=== PATIENT | female | born 1975 | race Caucasian/White ===

== ENCOUNTER → 2019-05-29 10:44 | Outpatient (CLI) | payer OTHER, SELFPAY ==
--- NOTE | ~2019-05-29 | MM_ITS ---
EXAMINATION: MM screening [facility] w negrito HISTORY: Screening mammogram TECHNIQUE: Bilateral rotated lateral cc views. .......Craniocaudal and mediolateral oblique 3-D tomos ynthesis images were obtained and synthetic 2-D images were generated. CAD analysis was submitted and interpreted. COMPARISON: 05/23/2018, 05/07/2017, 04/24/2016 bilateral digital screening mammogram examinations BREAST PARENCHYMAL COMPOSITION: The breasts are heterogeneously dense, which may obscure small masses . FINDINGS: There is no evidence of suspicious mass, calcification, or architectural distortion to sugg est malignancy in either breast. There has been no suspicious interval change. IMPRESSION: 1. No mammographic evidence of malignancy. 2. Recommend routine screening mammography in one year. BI-RADS Category 1: Negative Reviewed, dictated and finalized at location B. OSAL COORDINATOR
== END ==
PROVIDERS: PCP Family Medicine; Visit Provider Obstetrics & Gynecology
DX: Z12.31 Encounter for screening mammogram for malignant neoplasm of breast (principal)
CPT/HCPCS: 77063; 77067

== ENCOUNTER 2019-11-18 07:34 | Outpatient (NON) | payer OTHER, SELFPAY ==
[2019-11-20 01:38] LABS: SARS-CoV-2 RNA PCR Negative
== END 2019-11-18 07:35 ==
PROVIDERS: Physician Assistant; PCP Family Medicine; Visit Provider Family Medicine
DX: Z20.828 Contact with and (suspected) exposure to other viral communicable diseases (principal); R68.89 Other general symptoms and signs
CPT/HCPCS: 87635; C9803; U0003

== ENCOUNTER → 2020-07-19 10:26 | Outpatient (CLI) | payer OTHER, SELFPAY ==
--- NOTE | ~2020-07-19 | MM_ITS ---
EXAMINATION: MM screening [facility] BI w negrito HISTORY: Screening mammogram TECHNIQUE: Craniocaudal and mediolateral oblique 3-D tomosynthesis images were obtained and synthetic 2-D images were generated. CAD analysis was submitted and interpreted. COMPARISON: 05/29/2019, 05/15/2018, 05/07/2017 BREAST PARENCHYMAL COMPOSITION: The breasts are heterogeneously dense, which may obscure small masses . FINDINGS: There is no evidence of suspicious mass, calcification, or architectural distortion to sugg est malignancy in either breast. There has been no suspicious interval change. IMPRESSION: 1. No mammographic evidence of malignancy. 2. Recommend routine screening mammography in one year. BI-RADS Category 1: Negative Reviewed, dictated and finalized at location A.
== END ==
PROVIDERS: PCP Family Medicine; Visit Provider Obstetrics & Gynecology
DX: Z12.31 Encounter for screening mammogram for malignant neoplasm of breast (principal)
CPT/HCPCS: 77063; 77067

== ENCOUNTER → 2021-08-25 10:27 | Outpatient (CLI) | payer OTHER, SELFPAY ==
--- NOTE | ~2021-08-25 | MM_ITS ---
EXAMINATION: MM screening [facility] w negrito HISTORY: Screening mammogram TECHNIQUE: Craniocaudal and mediolateral oblique 3-D tomosynthesis images were obtained and synthetic 2-D images were generated. Bilateral rotated lateral CC views. CAD analysis was submitted and interp reted. COMPARISON: 07/19/2020, 06/03/2019, 05/23/2018 bilateral screening mammogram examinations BREAST PARENCHYMAL COMPOSITION: The breasts are heterogeneously dense, which may obscure small masses . FINDINGS: There is no evidence of suspicious mass, calcification, or architectural distortion to sugg est malignancy in either breast. There has been no suspicious interval change. IMPRESSION: 1. No mammographic evidence of malignancy. 2. Recommend routine screening mammography in one year. BI-RADS Category 1: Negative Reviewed, dictated and finalized at location A.
== END ==
PROVIDERS: PCP Family Medicine; Visit Provider Obstetrics & Gynecology
DX: Z12.31 Encounter for screening mammogram for malignant neoplasm of breast (principal)
CPT/HCPCS: 77063; 77067

== ENCOUNTER 2022-06-04 10:19 | Emergency (ER) | payer OTHER, SELFPAY ==
[2022-06-04 10:24] VITALS: BP 119/68; PULSE 82; RESP 16; TEMP 36.2; O2SAT 98
--- NOTE | 2022-06-04 10:26 | ED.URI ---
HPI - URI/Sore Throat General Chief Complaint: Upper Respiratory Infection Stated Complaint: Sore Throat Source: patient and RN notes reviewed History of Present Illness HPI Narrative: 47 yo F presents to ED with complaints of a swollen uvula. Pt states she first felt the swollen uvula Wednesday morning when she woke up. Pt was seen for intermittent, on-going, URI symptoms and place on Augmentin on Wednesday. Pt reports a weird feeling with swallowing but is able to do so. Pt denies any N/V/D, chest pain, SOB, fevers or chills. Related Data Home Medications Medication Instructions Recorded Confirmed fluticasone propionate 50 1 spray intranasal BID 05/29/19 06/04/22 mcg/actuation nasal spray,suspension (Allergy Relief (fluticasone)) montelukast 10 mg tablet 10 mg PO DAILY 05/29/19 06/04/22 Allergies Allergy/AdvReac Type Severity Reaction Status Date / Time No Known Allergies Allergy Mild Verified 06/04/22 10:34 UNABLE TO TAKE ANTIBIOTICS Allergy Mild STOMACHE Uncoded 05/06/22 14:39 PROBLEMS Review of Systems Review of Systems: CONSTITUTIONAL: Denies fever, chills, or sweats. EYES: Denies visual changes, redness, or discharge. ENT: Reports swollen uvula. CARDIOVASCULAR: Denies chest pain, palpitations, or edema. RESPIRATORY: Denies cough or dyspnea. GASTROINTESTINAL: Denies abdominal pain, nausea, vomiting, or diarrhea. GENITOURINARY: Denies dysuria or hematuria. SKIN: Denies rash or itching. MUSCULOSKELETAL: Denies back pain, joint pain, or myalgia. NEUROLOGIC: Denies headache, numbness, or weakness. [facility] Past Medical History Medical History Abnormal Pap smear of cervix 10/01/09 ascus; 10/16/09 COLP/BX lgsil; 05/01/10 LGSIL 11/05/10 ASCUS NEG HPV Bulging of cervical intervertebral disc 2 epidural injections in Nov & Dec 2014 History of hysterosalpingogram (02/12/14) MDD (major depressive disorder), recurrent episode, moderate Migraines Miscarriage (07/25/15) Screening mammogram, encounter for Stress fracture (R) foot Surgical History Surgical History History of colposcopy with cervical biopsy (10/16/09) mild squamous dysplasia--LGSIL [facility] I History of dilation and curettage 07/25/15 suction d&c--8wk missed ab History of elective History of repair of rotator cuff (~05/1998) torn (R) rotator cuff Family History Family History Father Hypertension Family history of elevated blood lipids Malignant neoplasm of prostate Mother Hypertension Grandparent Colon cancer paternal grandmother-age 59 COPD (chronic obstructive pulmonary disease) maternal grandfather Carcinoma of colon paternal grandmother Other Breast cancer paternal aunt Social History Social History (Updated 05/06/22 @ 14:41 by Elen Jung Char) Social History: Smoking status: Never smoker Second hand tobacco smoke exposure: No Alcohol intake: current Drinks per week: 2 Alcohol use details: Occasionally Substance use: never Substance use type: does not use Living arrangements: other Additional living arrangements comments: Occupation/Education: 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 There is no relevant family history pertinent to the patient complaint. Exam Narrative: GENERAL: This is a well-nourished, well-developed patient, in no apparent distress. HEAD: normocephalic, atraumatic. EYES: PERRL. Sclera clear/white. Vision is grossly intact. EARS: External ears diego
== END 2022-06-04 11:00 | disposition home or self-care (01) ==
PROVIDERS: Emergency Provider Nurse Practitioner Family; PCP Family Medicine
DX: K12.2 Cellulitis and abscess of mouth (principal); F33.9 Major depressive disorder, recurrent, unspecified
CPT/HCPCS: 87081; 87880; 99213; G0463

== ENCOUNTER → 2022-10-28 13:09 | Outpatient (CLI) | payer OTHER, SELFPAY ==
--- NOTE | ~2022-10-28 | MM_ITS ---
EXAMINATION: MM screening [facility] BI w negrito HISTORY: Screening mammogram TECHNIQUE: Craniocaudal and mediolateral oblique 3-D tomosynthesis images were obtained and synthetic 2-D images were generated. CAD analysis was submitted and interpreted. COMPARISON: 08/25/2021, 07/19/2020, 05/29/2019 BREAST PARENCHYMAL COMPOSITION: The breasts are heterogeneously dense, which may obscure small masses . FINDINGS: No suspicious mass, calcification, or architectural distortion are identified in either tito ast to suggest malignancy. There has been no suspicious interval change. IMPRESSION: 1. No mammographic evidence of malignancy. 2. Recommend routine screening mammography in one year. BI-RADS Category 1: Negative Reviewed, dictated and finalized at location A.
== END ==
PROVIDERS: PCP Family Medicine; Visit Provider Obstetrics & Gynecology
DX: Z12.31 Encounter for screening mammogram for malignant neoplasm of breast (principal)
CPT/HCPCS: 77063; 77067

== ENCOUNTER 2023-06-26 08:05 | Emergency (ER) | payer OTHER, SELFPAY ==
[2023-06-26 08:09] VITALS: BP 132/66; PULSE 64; RESP 16; TEMP 36.6; O2SAT 98
--- NOTE | 2023-06-26 08:28 | ED.GENADULT ---
HPI - General Adult General Chief complaint: Upper Respiratory Infection Stated complaint: Sinus Congestion Source: patient Mode of arrival: ambulatory Limitations: no limitations History of Present Illness HPI narrative: Patient presents for evaluation of sick symptoms since 06/09/2023. She reports sinus congestion, nasal drainage, headache and fluid in the ears. She was on Augmentin for similar symptoms in April of this year. She was then steroids last month. She has seen powder coat painter. The powder coat painter is considering starting allergy shots. She tried DayQuil [id number] and she is also on several allergy medications.. Her has similar symptoms. She does not smoke. Related Data Home Medications Medication Instructions Recorded Confirmed fluticasone propionate 50 1 spray intranasal BID 05/29/19 06/26/23 mcg/actuation nasal spray,suspension (Allergy Relief (fluticasone)) montelukast 10 mg tablet 10 mg PO DAILY 05/29/19 06/26/23 azelastine 137 mcg (0.1 %) nasal 2 spray intranasal DAILY 06/26/23 06/26/23 spray aerosol Allergies Allergy/AdvReac Type Severity Reaction Status Date / Time No Known Allergies Allergy Mild Verified 06/26/23 08:17 Review of Systems Review of Systems: CONSTITUTIONAL: Denies fever, chills, or sweats. EYES: Denies visual changes, redness, or discharge. ENT: Reports sinus congestion and drainage. Reports fluid in the ears. Denies sore throat CARDIOVASCULAR: Denies chest pain, palpitations, or edema. RESPIRATORY: Denies cough or dyspnea. GASTROINTESTINAL: Denies abdominal pain, nausea, vomiting, or diarrhea. GENITOURINARY: Denies dysuria or hematuria. SKIN: Denies rash or itching. MUSCULOSKELETAL: Denies back pain, joint pain, or myalgia. NEUROLOGIC: Reports headache. Denies numbness, dizziness, or weakness. PSYCHIATRIC: Denies anxiety or depression. [facility] Past Medical History Medical History Abnormal Pap smear of cervix 10/01/09 ascus; 10/16/09 COLP/BX lgsil; 05/01/10 LGSIL 11/05/10 ASCUS NEG HPV Bulging of cervical intervertebral disc 2 epidural injections in Nov & Dec 2014 History of hysterosalpingogram (02/12/14) MDD (major depressive disorder), recurrent episode, moderate Migraines Miscarriage (07/25/15) Screening mammogram, encounter for Stress fracture (R) foot Surgical History Surgical History History of colposcopy with cervical biopsy (10/16/09) mild squamous dysplasia--LGSIL [facility] I History of dilation and curettage 07/25/15 suction d&c--8wk missed ab History of elective History of repair of rotator cuff (~05/1998) torn (R) rotator cuff Family History Family History Father Hypertension Family history of elevated blood lipids Malignant neoplasm of prostate Mother Hypertension Grandparent Colon cancer paternal grandmother-age 59 COPD (chronic obstructive pulmonary disease) maternal grandfather Carcinoma of colon paternal grandmother Other Breast cancer paternal aunt Social History Social History Social History: Smoking status: Never smoker Second hand tobacco smoke exposure: No Alcohol intake: current Drinks per week: 2 Alcohol use details: Occasionally Substance use: never Substance use type: does not use Do You Feel Safe in your Home?: Yes Lack of Transportation: No Lack of Food: Never True Current Housing: I Have Housing Concerned About Future Housing: No Difficulty Paying Gas/Electric Bills: No Difficulty Paying for Meds: No Currently Unemployed: No Education: Bachelor's Degree Difficulty w/ Childcare or Family Care: No Living arrangements: other Additional living arrangements comments: Occupati
== END 2023-06-26 08:28 | disposition home or self-care (01) ==
PROVIDERS: Emergency Provider Nurse Practitioner; PCP Family Medicine
DX: J32.9 Chronic sinusitis, unspecified (principal)
CPT/HCPCS: 99213; G0463

== ENCOUNTER 2023-10-23 09:06 | Emergency (ER) | payer OTHER, SELFPAY ==
[2023-10-23 09:16] VITALS: BP 105/67; PULSE 69; RESP 16; TEMP 36.3; O2SAT 99
--- NOTE | 2023-10-23 09:53 | ED.GENADULT ---
HPI - General Adult General Chief complaint: Skin/Abscess/Foreign Body Stated complaint: rash on limbs and trunk Source: patient Mode of arrival: ambulatory Limitations: no limitations History of Present Illness HPI narrative: Patient presents for evaluation of a rash to the extremities x4 for the last 5 days. No new lotions, soaps, detergents, topical products. No difficulty breathing or swelling. She states she had food poisoning about 2 weeks ago but her symptoms resolved about 1 week ago. No one else in the household has similar rash. No history of similar symptoms. Symptoms are not improving or worsening since the time of symptom onset. She has not tried any therapies to assist with her symptoms. Related Data Home Medications Medication Instructions Recorded Confirmed fluticasone propionate 50 1 spray intranasal BID 05/29/19 10/01/23 mcg/actuation nasal spray,suspension (Allergy Relief (fluticasone)) montelukast 10 mg tablet 10 mg PO DAILY 05/29/19 10/01/23 azelastine 137 mcg (0.1 %) nasal 2 spray intranasal DAILY 06/26/23 10/01/23 spray aerosol Allergies Allergy/AdvReac Type Severity Reaction Status Date / Time No Known Allergies Allergy Mild Verified 10/01/23 08:35 Review of Systems Review of Systems: CONSTITUTIONAL: Denies fever, chills, or sweats. EYES: Denies visual changes, redness, or discharge. ENT: Denies rhinorrhea, congestion, sore throat, or otalgia. CARDIOVASCULAR: Denies chest pain, palpitations, or edema. RESPIRATORY: Denies cough or dyspnea. GASTROINTESTINAL: Denies abdominal pain, nausea, vomiting, or diarrhea. GENITOURINARY: Denies dysuria or hematuria. SKIN: Reports pruritic rash to the extremities x4 MUSCULOSKELETAL: Denies back pain, joint pain, or myalgia. NEUROLOGIC: Denies headache, numbness, dizziness, or weakness. PSYCHIATRIC: Denies anxiety or depression. [facility] Past Medical History Medical History Abnormal Pap smear of cervix 10/01/09 ascus; 10/16/09 COLP/BX lgsil; 05/01/10 LGSIL 11/05/10 ASCUS NEG HPV Bulging of cervical intervertebral disc 2 epidural injections in Nov & Dec 2014 History of hysterosalpingogram (02/12/14) MDD (major depressive disorder), recurrent episode, moderate Migraines Miscarriage (07/25/15) Screening mammogram, encounter for Stress fracture (R) foot Surgical History Surgical History History of colposcopy with cervical biopsy (10/16/09) mild squamous dysplasia--LGSIL [facility] I History of dilation and curettage 07/25/15 suction d&c--8wk missed ab History of elective History of repair of rotator cuff (~05/1998) torn (R) rotator cuff Family History Family History Father Hypertension Family history of elevated blood lipids Malignant neoplasm of prostate Mother Hypertension Grandparent Colon cancer paternal grandmother-age 59 COPD (chronic obstructive pulmonary disease) maternal grandfather Carcinoma of colon paternal grandmother Other Breast cancer paternal aunt Social History Social History Social History: Smoking status: Never smoker Second hand tobacco smoke exposure: No Alcohol intake: current Alcohol use details: Occasionally Substance use: never Substance use type: does not use Do You Feel Safe in your Home?: Yes Lack of Transportation: No Lack of Food: Never True Current Housing: I Have Housing Concerned About Future Housing: No Difficulty Paying Gas/Electric Bills: No Difficulty Paying for Meds: No Currently Unemployed: No Education: Bachelor's Degree Difficulty w/ Childcare or Family Care: No Living arrangements: other Additional living arrangements comments: Occupation/Education:
== END 2023-10-23 09:54 | disposition home or self-care (01) ==
PROVIDERS: Emergency Provider Nurse Practitioner; PCP Family Medicine
DX: L30.9 Dermatitis, unspecified (principal)
CPT/HCPCS: 99213; G0463

== ENCOUNTER 2024-01-12 14:06 | Outpatient (CLI) | payer OTHER, SELFPAY ==
--- NOTE | ~2024-01-12 | MM_ITS ---
EXAMINATION: MM screening [facility] w negrito HISTORY: Screening mammogram TECHNIQUE: Craniocaudal and mediolateral oblique 3-D tomosynthesis images were obtained and synthetic 2-D images were generated. CAD analysis was submitted and interpreted. COMPARISON: 10/28/2022, 08/25/2021, 07/19/2020, 05/29/2019 BREAST PARENCHYMAL COMPOSITION:Dense: The breasts are heterogeneously dense, which may obscure small masses. FINDINGS: No suspicious mass, calcification, or architectural distortion are identified in either tito ast to suggest malignancy. There has been no suspicious interval change. IMPRESSION: No mammographic evidence of malignancy. Recommend routine screening mammography in one year. BI-RADS Category 1: Negative Reviewed, dictated and finalized at location .
== END 2024-01-12 14:07 | disposition home or self-care (01) ==
PROVIDERS: PCP Family Medicine; Visit Provider Obstetrics & Gynecology
DX: Z12.31 Encounter for screening mammogram for malignant neoplasm of breast (principal)
CPT/HCPCS: 77063; 77067

== ENCOUNTER 2025-01-12 10:32 | Outpatient (CLI) | payer OTHER, SELFPAY ==
--- NOTE | ~2025-01-12 | MM_ITS ---
EXAMINATION: MM screening cydney BI w negrito HISTORY: Screening TECHNIQUE: Craniocaudal and mediolateral oblique 3-D tomosynthesis images were obtained and synthetic 2-D images were generated. CAD analysis was submitted and interpreted. COMPARISON: Comparison to multiple prior studies sequentially, with oldest reviewed study dated , 05/29/2019 BREAST PARENCHYMAL COMPOSITION: The breasts are heterogeneously dense, which may obscure small masses. FINDINGS: There is no evidence of suspicious mass, calcification, or architectural distortion to suggest malignancy in either breast. IMPRESSION: 1. No mammographic evidence of malignancy. 2. Recommend routine screening mammography in one year. BI-RADS Category 1: Negative Reviewed, dictated and finalized at location B.
--- OUTSIDE RECORDS SUMMARY | 2025-01-12 10:35 | XMS_ITS | Clinical Summary ---
Author Organization [facility] Address [address] [place] [address] Care Team Providers Care Water Taxi Driver Name Role Phone Unavailable Primary Care Provider Unavailabl e Source Comments [facility],non-owned Affiliates and Associated Physician Practices is amultiple site organization consisting of ambulatory clinics and hospital sitesin [place], [place], [place] and [place]. This disclosure is being madepursuant to the Care Everywhere program and may not contain all information available regarding this patient. Last updated 18.[facility] Active Problems Patient Care Coordination No te Formatting of this note migh t be different from the original. [id number] Problem Noted Date Diagnosed Date AMA (advanced maternal age) primigravida 35+ Social History Tobacco Use Types Packs/Day Years Used Date Smoking Tobacco: Never Assessed Comments No Sex and Gender Information Value Date Recorded Sex Assigned at Not on file Legal Sex Female 7:16 AM CDT Gender Identity Not on file Sexual Orientation Not on file Plan of Treatment Health Maintenance Due Date Last Done Comments COLOGUARD (AGES 45-75) - COL ON CA SCREENING 1974 COLON MONITORING 1974 COLONOSCOPY - COLON CA SCREENING 1974 CT COLONOGRAPHY - COLON CA SCREENING 1974 Colorectal Cancer Screening 1974 FIT - COLON CA SCREENING 1974 FLEX SIG - COLON CA SCREENING 1974 LIPID TESTING 1974 MAMMOGRAM 1974 HIV SCREENING 1989 HEPATITIS C SCREENING 01/08/1992 DTAP/TDAP/TD VACCINES (1 - Tdap) 1993 HEPATITIS B VACCINE (1 of 3 - 19+ 3-dose series) 1993 PNEUMOCOCCAL VACCINE 50+ (1 of 1 - PCV) 01/13/2024 ZOSTER VACCINE (1 of 2) 01/13/2024 DEPRESSION SCREENING 04/26/2024 COVID-19 VACCINE (1 - 2023-2 5 season) 2024 INFLUENZA VACCINE (#1) 2024 HIB VACCINE Aged Out No longer eligi ble based on patient's age to complete this topic HPV VACCINE Aged Out No longer eligi ble based on patient's age to complete this topic MENINGOCOCCAL (Group B) VACC INE SHARED DECISION-MAKING Aged Out No longer eligibl e based on patient's age to complete this topic MENINGOCOCCAL GROUPS A/C/Y/W VACCINE Aged Out No longer eligible b ased on patient's age to complete this topic Insurance
--- OUTSIDE RECORDS SUMMARY | 2025-01-12 10:35 | XMS_ITS | Clinical Summary ---
Author Organization [facility] Address [address] [place] [address] Phone Care Team Providers Care Channeler Outsole Name Role Phone Rachelle Wallis MD Primary Care Provider [phone] Rachelle Wallis MD Unavailable [phone] Allergies No known active allergies Medications methylPREDNISo lone (Medrol) 4 MG Tablet Therapy PackIndication s:SOB (shortness of breath) Use as per instructions on package. 21 Tablet 2 Active Additional Information Patient not taking.Reported on 10/12/2023 albuterol (ProAir HFA) 108 (90 Base) MCG/ACT Aerosol SolutionIndica tions:SOB (shortness of breath) take 2 Puffs by inhalation every 4 hours as needed for Wheezing or Cough. 18 g 2 Active cetirizine (ZyrTEC) 10 MG Tablet Take 10 mg by mouth daily. Active Mounjaro 5 MG/0.5ML Solution Pen-injector INJECT 5 MG SUBCUTANEOUSLY ONCE A WEEK 4 Active PROGESTERONE PO Take by mouth. Activ e ESTROGENS CONJUGATED PO Take by mouth. A ctive Montelukast Sodium (SINGULAIR PO) Take by mouth. Active azelastine (ASTELIN) 0.1 % Solution 2 Sprays by Nasal route. Active Active Problems No known active problems Social History Tobacco Use Types Packs/Day Years Used Date Smoking Tobacco: Never Smokeless Tobacco: Never Tobacco Cessation:Counseling Given: Not Answered Alcohol Use Standard Drinks/Week Comments Yes 0 (1 standard drink = 0.6 oz pur e alcohol) occasionally Comments No Sex and Gender Information Value Date Recorded Sex Assigned at Not on file Legal Sex Female 12:11 AM CDT Gender Identity Not on file Sexual Orientation Not on file Last Filed Vital Signs Vital Sign Reading Time Taken Comments Blood Pressure 104/62 10/12/2023 11:18 AM CDT Pulse 84 10/12/2023 11:18 AM CDT Temperature 36.2 C (97.1 F) 10/12/2023 11:18 AM CDT Respiratory Rate 18 10/12/2023 11:18 AM CDT Oxygen Saturation 98% 10/12/2023 11:18 AM CDT Inhaled Oxygen Concentration - - Weight - - Height - - Body Mass Index - - Plan of Treatment Health Maintenance Due Date Last Done Comments Hepatitis C Virus (HCV) Screening 1974 Mammogram 1974 Hepatitis B Immunization (1 of 3 - 19+ 3-dose series) 1993 Pap Smear 1995 Cervical Cancer Screening (CCS) 01/13/2004 HPV/Cotest 01/13/2004 Cologuard 2019 Immunochemical Fecal Occult Blood 2019 Pneumococcal Immunization (50+ years) (2 of 2 - PCV) 01/13/2024 10/22/2018 Zoster Immunization (1 of 2) 01/13/2024 Influenza Immunization (#1) 12/25/202412/26, 02/19/2021, 02/13/2020, Additional history exists SARS-COV-2 Immunization (2024- season) 2024 02/07/2022, 03/22/2021, 09/03/2020, Additional history exists Colonoscopy 02/28/2032 02/27/2022 Colorectal Cancer Screening 02/28/2032 Respiratory Syncytial Virus (RSV) Immunization (Adult) (1 - 1-dose 75+ series) 2049 Pneumococcal Immunization Combined Discontinued 10/22/2018 DTaP/Tdap/Td Immunization Discontinued 10/30/2019 TdaP Immunization Completed 10/30/2019 Human Papillomavirus (HPV) Immunization Aged Out No longer eligible based on patient's age to complete this topic Meningococcal Immunization (ACWY) Aged Out No longer eligible based on patient's age to complete this topic Rotavirus Immunization Aged Out No lo nger eligible based on patient's age to complete this topic Insurance [employer] Care Teams Channeler Outsole Relationship Specialty Start Date End Date Rachelle Wallis MD [address] [facility] [address] [place] [address] PCP - General Family Medicine 12/29/21 Rachelle Wallis MD [address] [facility] [address] [place] [address] Family Medicine 12/29/21
--- OUTSIDE RECORDS SUMMARY | 2025-01-12 10:35 | XMS_ITS | Clinical Summary ---
Author Organization [facility] Address [address] [place] [address] Phone Care Team Providers Care Capsule Filling Machine Operator Name Role Phone Unavailable Primary Care Provider Unavailabl e Allergies No known active allergies Medications SUMAtriptan (IMITREX) 100 mg tablet Take 100 mg by mouth see administration instructions. may repeat in 2 hours; max dose 200mg in 24 hours Active montelukast (SINGULAIR) 10 mg tablet Take 10 mg by mouth daily at bedtime. Active azelastine (ASTELIN) 137 mcg/actuation nasal spray Administer 2 Sprays in each nostril 2 times daily. Active cetirizine (ZyrTEC) 10 mg tablet Take 10 mg by mouth daily. Active fluticasone propionate (FLONASE) 50 mcg/spray [place], Suspension nasal inhaler Administer 2 Sprays in each nostril daily. Active meloxicam (Mobic) 15 mg tablet Take 1 Tablet (15 mg) by mouth daily. 30 Tablet 1 3 Active albuterol sulfate HFA 90 mcg/actuation aerosol inhaler Take 2 Puffs by inhalation. 2 Active methylPREDNISo lone (MEDROL DOSPACK) 4 mg Tablets, Dose Pack Take as directed 21 Tablet 4 Active Active Problems Problem Noted Date Diagnosed Date Synovitis of hand 12/27/2019 Encounters Date Type Department Care Team Description 01/10/2025 External Device Data STL ABSTRACTION Provider, Abstract 01/09/2025 External Device Data STL ABSTRACTION Provider, Abstract 01/08/2025 1:34 PM CDT - 01/08/2025 11:59 PM CDT Hospital Encounter [facility] [place] [address] [facility] [place] [id number] Josie May NP Arrived Discharge Disposition: Home or Self Care from Last 3 Months Family History Medical History Relation Name Comments Colon Cancer Paternal Grandmother Relation Name Status Comments Paternal Grandmother Social History Tobacco Use Types Packs/Day Years Used Date Smoking Tobacco: Never Smokeless Tobacco: Never Tobacco Cessation:Counseling Given: Not Answered Alcohol Use Standard Drinks/Week Comments Yes 2 (1 standard drink = 0.6 oz pur e alcohol) Comments Unknown Sex and Gender Information Value Date Recorded Sex Assigned at Not on file Legal Sex Female 11:29 AM CDT Gender Identity Not on file Sexual Orientation Not on file Last Filed Vital Signs Vital Sign Reading Time Taken Comments Blood Pressure 114/79 05/27/2023 10:37 AM COMMUNITY SERVICE OFFICER Pulse 65 05/27/2023 10:37 AM COMMUNITY SERVICE OFFICER Temperature 36.7 C (98 F) 05/27/2023 10:37 AM COMMUNITY SERVICE OFFICER Respiratory Rate 16 05/27/2023 10:37 AM COMMUNITY SERVICE OFFICER Oxygen Saturation 94% 05/27/2023 10:37 AM COMMUNITY SERVICE OFFICER Inhaled Oxygen Concentration - - Weight 70.3 kg (155 lb) 05/27/2023 10:37 AM COMMUNITY SERVICE OFFICER Height 157.5 cm (5' 2) 05/27/2023 10:37 AM COMMUNITY SERVICE OFFICER Body Mass Index 28.35 05/27/2023 10:37 AM COMMUNITY SERVICE OFFICER Plan of Treatment Health Maintenance Due Date Last Done Comments DTAP/TDAP/TD VACCINES (1 - Tdap) 1993 HEPATITIS B VACCINES (1 of 3 - 19+ 3-dose series) 1993 HPV/Cotest (21-29) 1995 CERVICAL CANCER SCREENING 01/13/2004 HPV/Cotest (30-65) 01/13/2004 PAP SMEAR 01/13/2004 BREAST CANCER SCREENING 2014 FIT-DNA Q 3 years 2019 FIT/FOBT Q 1 year 2019 Flex Sig/CT Colonography Q 5 years 2019 ZOSTER VACCINE (1 of 2) 01/13/2024 INFLUENZA VACCINE (#1) 2024 COLORECTAL SCREENING 02/28/2032 02/27/2022, 02/28/20 22 Colorectal Cancer Screening 02/28/2032 Procedures Procedure Name Priority Date/Time Associated Diagnosis Comments US PELVIS + TRANSVAG NON OB Routine 01/08/2025 1:55 PM CDT Endometrial hyperplasia, unspecified Symptomatic menopausal or female climacteric states COLONOSCOPY REPORT 02/27/2022 10 :04 AM CDT from Last 3 Months or Most Recently Relevant to Health Maintenance Results * US PELVIS + TRANSVAG NON OB (01/08/2025 1:55 PM CDT) Anatomical Region Laterality Modality Pelvis Ultrasound 01/08/2025 1:55 PM CDT Impressions 01/08/2025 4:00 PM CDT IMPRESSION: The endometrium at the level of the cervix is abnormally thickened and complex in appearance measuring up to 1.1 cm. Endometrial hyperplasia or potentially endometrial carcinoma in this region would not be excluded and biopsy would be recommended. The endometrium elsewhere within the uterus is normal in thickness. Normal right ovary. Nonvisualization of the left ovary. Narrative 01/08/2025 4:00 PM CDT EXAM: US PELVIS + TRANSVAG NON OB DATE: 01/08/2025 2:23 PM HISTORY: Endometrial hyperplasia, unspecified; Symptomatic menopausal or female climacteric states postmenopausal female. Postmenopausal bleeding after starting hormone replacement therapy COMPARISON: None. FINDINGS: The uterus measures 6.5 x 2.1 x 4.1 cm. The endometrium at the level of the cervix is abnormally thickened and complex in appearance measuring up to 1.1 cm in thickness. The endometrium elsewhere is normal in thickness measuring 1.1 mm. The myometrium appears normal. Right ovary: 2.1 x 1.7 x 1.6 cm. The right ovary appears normal. The left ovary is not visualized. There is no free fluid in the pelvis. Procedure Note Leonela Vidales MD - 01/08/2025 EXAM: US PELVIS + TRANSVAG NON OB DATE: 01/08/2025 2:23 PM HISTORY: Endometrial hyperplasia, unspecified; Symptomatic menopausal or female climacteric states postmenopausal female. Postmenopausal bleeding after starting hormone replacement therapy COMPARISON: None. FINDINGS: The uterus measures 6.5 x 2.1 x 4.1 cm. The endometrium at the level of the cervix is abnormally thickened and complex in appearance measuring up to 1.1 cm in thickness. The endometrium elsewhere is normal in thickness measuring 1.1 mm. The myometrium appears normal. Right ovary: 2.1 x 1.7 x 1.6 cm. The right ovary appears normal. The left ovary is not visualized. There is no free fluid in the pelvis. IMPRESSION: The endometrium at the level of the cervix is abnormally thickened and complex in appearance measuring up to 1.1 cm. Endometrial hyperplasia or potentially endometrial carcinoma in this region would not be excluded and biopsy would be recommended. The endometrium elsewhere within the uterus is normal in thickness. Normal right ovary. Nonvisualization of the left ovary. us Josie May NP ORDERABLES Final Result * COLONOSCOPY REPORT (02/27/2022 10:04 AM CDT) Narrative Procedure Note Margot Brown MD - 02/27/2022 10:04 AM CDT [facility] Endoscopy Patient Name: Flori Salter Procedure Date: 02/27/2022 Date of : 1975 Attending MD: Margot Brown MD, Procedure: Colonoscopy Indications: Screening for colorectal malignant neoplasm Providers: Margot Brown MD Referring MD: Medicines: Monitored Anesthesia Care Complications: No immediate complications. Procedure: Informed consent was obtained for the procedure, including moderate sedation after risks were discussed. Based on the pre-procedure assessment, including review of the patient's medical history, medications, allergies, and review of systems, the patient was deemed to be an appropriate candidate for sedation. A timeout was performed. Continuous ECG monitoring, pulse oximetry, blood pressure monitoring, and direct observation were performed. The scope was introduced through the anus and advanced to the terminal ileum. The colonoscopy was performed without difficulty. The patient tolerated the procedure well. The quality of the bowel preparation was good. The terminal ileum, ileocecal valve, appendiceal orifice, and rectum were photographed. Estimated Blood Loss: Estimated blood loss was minimal. Findings: The perianal and digital rectal examinations were normal. The terminal ileum appeared normal. A 3 mm polyp was found in the rectum. The polyp was sessile. The polyp was removed with a cold biopsy forceps. Resection and retrieval were complete. The exam was otherwise without abnormality on direct and retroflexion views. Impression: - The examined portion of the ileum was normal. - One 3 mm polyp in the rectum, removed with a cold biopsy forceps. Resected and retrieved. - The examination was otherwise normal on direct and retroflexion views. Recommendation: - Patient has a contact number available for emergencies. The signs and symptoms of potential delayed complications were discussed with the patient. Return to normal activities tomorrow. Written discharge instructions were provided to the patient. - Resume previous diet. - Continue present medications. - Await pathology results. - Repeat colonoscopy in 7-10 years for surveillance based on pathology results. Margot Brown MD 02/27/2022 10:04:15 AM This report has been signed electronically. Number of Addenda: [phone] ; [place] [address] Margot Brown MD GI PROCEDURE ORDERABLES F inal Result from Last 3 Months or Most Recently Relevant to Health Maintenance Insurance [address] [address] Erly [facility] Erly Advance Directives For more information, please contact: [phone] * Full Code (Latest Code Status on File) Date Activated Date Inactivated Comments 02/27/2022 9:21 AM 02/27/2022 12:46 PM
== END 2025-01-12 10:33 | disposition home or self-care (01) ==
LOC: ANHFOHIMG 10:33
PROVIDERS: PCP Family Medicine; Visit Provider Obstetrics & Gynecology
DX: Z12.31 Encounter for screening mammogram for malignant neoplasm of breast (principal)
CPT/HCPCS: 77063; 77067

== ENCOUNTER 2025-02-08 01:03 | Day surgery (SDC) | payer OTHER, SELFPAY ==
[2025-02-01 14:13] VITALS: BMI 25.9
--- NOTE | 2025-02-01 14:20 | PC.NURSE ---
Addendum entered by Joseph Crooks RN 02/01/25 15:52: Last dose Chuck was 01-26-2025. Patient already told to hold this by 's office. Original Note: [facility] has started construction of its new state of the art ER which will open Spring 2026. With this, we anticipate parking may be a challenge for some our surgical patients and families. Parking spaces are limited but are available for all Surgical, obstetrics, and ER patients sharing this lot. If you arrive and find you are having a hard time finding a parking space, please note that we understand the challenges, please drive around the hospital and park near Hospital Entrance 1. When you enter this entrance, you can ask a volunteer to direct or take you back to the surgical waiting area to check in. We appreciate everyone?s understanding of these expected challenges while we build for your future. Report to the Outpatient Waiting Room, entrance under the green pavilion located off [facility], at time _0600_ on date _[id number]_. Planned Procedure Time: _0730_.? Time changes happen often and if your time is changed the preop area will call you the afternoon before. - You and your visitor will be asked to self-screen and do not enter if you have any COVID symptoms. Please call surgeon if you need to reschedule. - A mask is optional within the hospital at this time. Patients may have clear liquids (water, carbonated beverages, clear teas, apple juice) until 3 hours prior to surgery with a maximum of 20 ounces. - No food from midnight until time of surgery and no smoking, or chewing tobacco (or any form of nicotine). No chewing gum, candy or mints. Take only the following medications with a SIP of water on the morning of surgery: _Flonase__ DO NOT STOP ANY OF YOUR OTHER PRESCRIPTION MEDICATIONS PRIOR TO SURGERY EXCEPT THE FOLLOWING Hold all vitamins and supplements for 3 days per anesthesiologist. Medications to discontinue per physician Date to take last dose Please no make-up, nail georgian, hairspray, perfume, deodorant, or body powder the day of surgery.? No jewelry (including any body piercings) or valuables the day of surgery, leave them at home.? Please take a shower or bath the night before, or the morning of, surgery with an antibacterial soap.? Wear comfortable, loose fitting clothing.? - Jewelry must be removed prior to entering the operating room.? Rings and piercings that are not removed may be cut off. - The hospital will not accept responsibility for valuables.? - Please leave all valuables, including medications, at home the day of surgery. If you are going home after surgery, a licensed driver supervisor must drive you home.? - NO public transportation without another adult if you receive anesthesia. - We recommend that an adult stay with you for 24 hours following discharge. - We also recommend that you do not drive, make important decision, drink alcoholic beverages, or take any drugs that were not prescribed by your health care provider for at least 24 hours after your discharge time. Follow any additional instructions given to you from your surgeon. Telephone instructions given to __Dana__and asked if any additional questions and then verbalized understanding. Patient advised to call surgeon office or pre surgery nurse liaison [phone] if any additional questions.
--- OUTSIDE RECORDS SUMMARY | 2025-02-08 01:06 | XMS_ITS | Clinical Summary ---
Author Organization [facility] Address [address] [place] [address] Phone Care Team Providers Care Biogeographer Name Role Phone Unavailable Primary Care Provider [...] daily. Active fluticasone propionate (FLONASE) 50 mcg/spray [place], Suspension nasal inhaler Administer 2 Sprays in [...] - 01/08/2025 11:59 PM CDT Hospital Encounter [facility] [address] [place] [address] Josie May NP Discharge Disposition: Home or Self Care from [...] Comments Blood Pressure 114/79 05/27/2023 10:37 AM UNDRAPED ARTIST MODEL Pulse 65 05/27/2023 10:37 AM UNDRAPED ARTIST MODEL Temperature 36.7 C (98 F) 05/27/2023 10:37 AM UNDRAPED ARTIST MODEL Respiratory Rate 16 05/27/2023 10:37 AM UNDRAPED ARTIST MODEL Oxygen Saturation 94% 05/27/2023 10:37 AM UNDRAPED ARTIST MODEL Inhaled Oxygen Concentration - - Weight 70.3 kg (155 lb) 05/27/2023 10:37 AM UNDRAPED ARTIST MODEL Height 157.5 cm (5' 2) 05/27/2023 10:37 AM UNDRAPED ARTIST MODEL Body Mass Index 28.35 05/27/2023 10:37 AM UNDRAPED ARTIST MODEL Plan of Treatment Health Maintenance Due Date [...] (#1) 2024 COLORECTAL SCREENING 02/28/2032 02/27/2022, 02/28/20 Colorectal Cancer Screening 02/28/2032 Procedures Procedure Name [...] the left ovary. us Josie May NP US ORDERABLES Final Result * COLONOSCOPY REPORT (02/27/2022 10:04 AM CDT) Narrative Procedure Note Margot Brown MD - 02/27/2022 10:04 AM CDT [facility] Endoscopy Patient Name: Flori Salter Procedure Date: [...] signed electronically. Number of Addenda: [address]; [place] [address] Margot Brown MD GI PROCEDURE ORDERABLES F inal Result from Last 3 Months or Most Recently Relevant to Health Maintenance Insurance [place] [address] Digital Reef [facility] [place] Advance Directives For more information, please contact: [phone] * Full Code (Latest Code Status on File) Date Activated Date Inactivated Comments 02/27/2022 9:21 AM 02/27/2022 12:46 PM
--- OUTSIDE RECORDS SUMMARY | 2025-02-08 01:06 | XMS_ITS | Clinical Summary ---
Author Organization [facility] Address [address] [place] [address] Phone Care Team Providers Care Sleep Tech Name Role Phone Rachelle Wallis MD Primary Care Provider [phone] Rachelle Wallis MD Unavailable [phone] Allergies No known active allergies Medications methylPREDNISo [...] patient's age to complete this topic Insurance [employer] Care Teams Sleep Tech Relationship Specialty Start Date End Date Rachelle Wallis MD [address] [facility] [address] [place] [address] PCP - General Family Medicine 12/29/21 Rachelle Wallis MD [address] [facility] [address] [place] [address] Family Medicine 12/29/21
[2025-02-08 06:03] VITALS: BP 107/66; PULSE 63; RESP 18; TEMP 36.2; O2SAT 100
[2025-02-08] MEDS: ACETAMINOPHEN 500 MG TABLET 1000 MG PO (06:17)
[2025-02-08] MEDS: LACTATED RINGERS 1,000 ML 30 ML IV CONT (06:24)
--- NOTE | 2025-02-08 07:10 | SUR.PREOP ---
Patient notified of delay by this RN.
--- NOTE | 2025-02-08 07:29 | WPDANESEPPF ---
Anes - Initial Pre Proc Eval Procedure: Operation Date: 02/08/25 07:30 Proposed Procedures p Hysteroscopy Dilation and Curettage with Nelly Endometrial Ablation - August Tom MD Date/Time: 02/08/25 07:29 Surgeon: August Tom MD Pre Op Diagnosis: Endometrial Thickening Patient Data Age: 50 Gender: F Height: 1.57 m Weight: 62.8 kg Last Vital Signs Temp 97.2 F L 02/08/25 06:03 Pulse 63 02/08/25 06:03 Resp 18 02/08/25 06:03 BP 107/66 02/08/25 06:03 Pulse Ox 100 02/08/25 06:03 O2 Del Method Room Air 02/08/25 06:03 Allergies Allergy/AdvReac Type Severity Reaction Status Date / Time No Known Allergies Allergy Mild Verified 02/08/25 06:06 Home Medications ?Medication ?Instructions ?Recorded ?Confirmed ?Type fluticasone propionate 50 1 spray intranasal BID 05/29/19 02/08/25 History mcg/actuation nasal spray,suspension (Allergy Relief (fluticasone)) sumatriptan succinate 100 mg See Rx Instructions PO .COMPLEX 03/27/22 02/01/25 Rx tablet (Imitrex) #10 tabs progesterone micronized 200 mg 200 mg PO QHS 05/05/24 02/08/25 History capsule cetirizine 10 mg capsule (All Day 10 mg PO DAILY 02/01/25 02/08/25 History Allergy (cetirizine)) cholecalciferol (vitamin D3) 50 2,000 unit PO DAILY 02/01/25 02/08/25 History mcg (2,000 unit) capsule (Vitamin D3) tirzepatide 2.5 mg/0.5 mL 2.5 mg subcut WEEKLY 02/01/25 02/01/25 History subcutaneous pen injector (Mounjaro) Patient hx anesthesia problems: none Family hx anesthesia problems: none Results Review: All pre-operative results and documents have been reviewed as part of the pre-operative evaluation. [facility] Past Medical History Medical History (Updated 01/31/25 @ 10:31 by August Tom MD) Screening mammogram, encounter for Miscarriage (07/25/15) History of hysterosalpingogram (10/20/14) Bulging of cervical intervertebral disc 2 epidural injections in Nov & Dec 2014 Stress fracture (R) foot Abnormal Pap smear of cervix 10/01/09 ascus; 10/16/09 COLP/BX lgsil; 05/01/10 LGSIL 11/05/10 ASCUS NEG HPV MDD (major depressive disorder), recurrent episode, moderate Migraines Surgical History Surgical History (Updated 01/31/25 @ 09:31 by Elen Jung Char) H/O oral surgery History of colposcopy with cervical biopsy (10/16/09) mild squamous dysplasia--LGSIL [place] I History of repair of rotator cuff (~05/1998) torn (R) rotator cuff History of dilation and curettage 07/25/15 suction d&c--8wk missed ab History of elective Family History Family History Father Hypertension Family history of elevated blood lipids Malignant neoplasm of prostate Mother Hypertension Grandparent Colon cancer paternal grandmother-age 59 COPD (chronic obstructive pulmonary disease) maternal grandfather Carcinoma of colon paternal grandmother Other Breast cancer paternal aunt Social History Social History Social History: Smoking status: Never smoker Second hand tobacco smoke exposure: No Alcohol intake: current Alcohol use details: Occasionally 2 a month Substance use: never Substance use type: does not use Do You Feel Safe in your Home?: Yes Lack of Transportation: No Lack of Food: Never True Current Housing: I Have Housing Concerned About Future Housing: No Difficulty Paying Gas/Electric Bills: No Difficulty Paying for Meds: No Currently Unemployed: No Education: Bachelor's Degree Difficulty w/ Childcare or Family Care: No Living arrangements: with family Additional living arrangements comments: Occupation/Education: 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 Gender identity (if verbalized by the patient): Female Sexual Orientation (if Verbalized by the Patient): Straight or Heterosexual Spiritual care concerns: No Anes - Eval Final PreProcedure Day of Procedure 02/08/25 07:29 Patient weight: normal Heart: regular rate and rhythm Lungs: clear to auscultation Airway: Mallampati scale class II Neurological: alert and oriented Last oral intake: >/= 8 hours ASA classification: II Emergent: no Anesthetic plan: proceed Anesthesia type and monitoring: general GIVS and standard monitoring Results Review: All pre-operative results and documents have been reviewed as part of the pre-operative evaluation. Informed Consent: The patient's anesthetic plan and its attendant risks and benefits were discussed with the patient/family/POA. Questions were solicited and answers provided to the satisfaction of the patient/family/POA.
--- NOTE | 2025-02-08 07:45 | WPDHPUPDATE1 ---
History and Physical Update Update Date/Time: 02/08/25 07:45 History and Physical has been reviewed, including an updated exam of the patient. There are NO changes in the patient's condition. Risks, benefits, and alternatives have been discussed and questions answered. Patient agrees to proceed with procedure.
[2025-02-08] MEDS: ceFAZolin 2 GM in SODIUM CHLORIDE 0.9% IV 50 ML 100 ML IVPB (08:24)
[2025-02-08] MEDS: KETOROLAC 30 MG/ML VIAL (*BKC) IV PUSH (08:39)
--- NOTE | 2025-02-08 08:48 | P.OP_ITS ---
Procedure Note - Detailed Date of Procedure 02/08/25 Pre-op Diagnosis 1. Postmenopausal bleeding 2. Endometrial thickened on ultrasound Post-op Diagnosis Same Procedure Performed 1. Hysteroscopy with uterine curettings 2. Endometrial ablation Surgeon August Tom MD Anesthesia MAC Findings No endometrial noted. Atrophic cavity. Description of Procedure Patient prepped draped this procedure. Cervix was dilated to allow the hysteroscope placed once this was performed hysteroscope was placed findings were noted as above. Curettings were obtained minimal tissue. Nelly instrument was placed, cavity assessment performed, and instrument activated. A t the end the cycle endometrial cavity again inspected without abnormality in good destruction noted. Patient was then sent recovery room in stable condition. Estimated Blood Loss 10 Drains No Packing No Pathology Yes Complications No immediate complications Condition Stable Disposition PACU [facility] Billing Surgery - Charge Forward: Surgery Billing
[2025-02-08 08:50] VITALS: BP 100/53; PULSE 61; RESP 14; O2SAT 99
[2025-02-08 09:20] VITALS: BP 101/60; PULSE 60; RESP 20
[2025-02-08] MEDS: oxyCODONE HCL (*CRX) 5 MG TAB IR PO (09:38)
[2025-02-08 09:50] VITALS: BP 120/65; PULSE 55; RESP 20
--- NOTE | 2025-02-08 10:00 | S_PTH ---
PATIENT: Flori Duckworth LOC: [facility]#:[id number] AGE/SX: 50/F ROOM: RE02/08/[address]: August Tmo MD : 1975 BED: DIS: 02/08/2025 SPEC #: [id number] RECD: 02/08/25 10:09 STATUS: ONELIA REQ #: [id number] KATIE: 02/08/25 10:[address]: August Tom DEPT: [facility] Surgical RECD BY: Nory Barnett ENTERED: 02/08/25 10:10 SP TYPE: Surgical OTHR DR: Rock Mcginnis MD Tissues: A - Endometrial Curettings Procedures: Hematoxylin and Eosin Stain Gross and Microscopic Level 4
== END 2025-02-08 10:00 | disposition home or self-care (01) ==
PROVIDERS: PCP Family Medicine; Visit Provider Obstetrics & Gynecology
PROC: 0U5B8ZZ Destruction of Endometrium, Via Natural or Artificial Opening Endoscopic (ICD-10-PCS; CPT 58563; principal; 2025-02-08 07:30)
DX: R93.89 Abnormal findings on diagnostic imaging of other specified body structures (principal); N85.8 Other specified noninflammatory disorders of uterus; F33.1 Major depressive disorder, recurrent, moderate; Z79.85 Long-term (current) use of injectable non-insulin antidiabetic drugs; Z98.890 Other specified postprocedural states; Z80.42 Family history of malignant neoplasm of prostate; Z80.0 Family history of malignant neoplasm of digestive organs; Z80.3 Family history of malignant neoplasm of breast
CPT/HCPCS: 58563; 88305; J0690; A9270; J1885; J2003; J2250; J2405; J2704; J3010; J7030; J7120